=== PATIENT | female | born 1965 | race Caucasian/White ===

== ENCOUNTER 2016-10-18 19:47 | Observation (INO) | payer BC ==
[2016-10-18] MEDS ORDERED: ONDANSETRON DISINTEGRATING 4 MG TAB PO ONE (19:59)
[2016-10-18] MEDS ORDERED: NS 1,000 ML IV ONE (20:00)
[2016-10-18 20:28] LABS: % IMMATURE GRANULYOCYTES 0.4 % (0.0-1.1); ABSOLUTE IMMATURE GRANULOCYTES 0.06 10^3/uL (0.00-0.10); ADD DIFF? NO; ADD MORPH? NO; ADD SCAN? NO; ATYPICAL LYMPHOCYTE FLAG 0 (0-99); FRAGMENT RBC FLAG 0 (0-99); HEMATOCRIT 42.2 % (38.0-47.0); HEMOGLOBIN 14.3 g/dL (12.6-16.3); LEFT SHIFT FLG 0 (0-99); LIPEMIA HEMOLYSIS FLAG 90 (0-99); MEAN CELL HEMOGLOBIN 29.4 pg (27.9-34.1); MEAN CELL HEMOGLOBIN CONCENTR. 33.9 g/dL (32.4-36.7); MEAN CELL VOLUME 86.7 fL (81.5-99.8); MEAN PLATELET VOLUME 10.3 fL (8.7-11.7); PLATELET CLUMPS FLAG 10 (0-99); PLATELET COUNT 253 10^3/uL (150-400); RED BLOOD CELL COUNT 4.87 10^6/uL (4.18-5.33); RED CELL DISTRIBUTION WIDTH 12.7 % (11.5-15.2)
[2016-10-18] MEDS ORDERED: ONDANSETRON 4 MG/2 ML VIAL ONE (20:28)
[2016-10-18] MEDS ORDERED: ONDANSETRON 4 MG/2 ML VIAL IVP ONE (20:36)
--- NOTE | 2016-10-18 20:41 | CPEKG ---
Heart Rate: 69 RR Interval: 870 P-R Interval: 168 QRSD Interval: 84 QT Interval: 408 QTC Interval: 437 P [place]: 72 QRS [place]: 79 T Wave [place]: 58 EKG Severity - NORMAL ECG - EKG Impression: SINUS RHYTHM Electronically Signed By: Alex Cleveland 18-Oct-2016 21:57:14
[2016-10-18 20:47] LABS: ANION GAP 12 mEq/L (8-16); CALCIUM 9.8 mg/dL (8.5-10.4); CARBON DIOXIDE 24 mEq/l (22-31); CHLORIDE 103 mEq/L (97-110); GLOMERULAR FILTRATION RATE 58; GLUCOSE 115 mg/dL (70-100); POTASSIUM 3.8 mEq/L (3.5-5.2); SODIUM 139 mEq/L (134-144)
[2016-10-18 20:58] LABS: TROPONIN I < 0.012 ng/mL (0-0.034)
[2016-10-18] MEDS ORDERED: METOCLOPRAMIDE 10 MG/2 ML VIAL IVP ONE (21:20)
--- NOTE | 2016-10-18 21:41 | EDPHY ---
H & P Stated Complaint: Syncope, n/v - Personal History Current Tetanus/Diphtheria Vaccine: Yes Current Tetanus Diphtheria and Acellular Pertussis (TDAP): Yes - Medical/Surgical History Hx Asthma: No Hx Chronic Respiratory Disease: No Hx Diabetes: No Hx Cardiac Disease: No Hx Renal Disease: No Hx Cirrhosis: No Hx Alcoholism: No Hx HIV/AIDS: No Hx Splenectomy or Spleen Trauma: No Other PMH: PMH: hyperlipidemia - Social History Smoking Status: Never smoked HPI/ROS: Chief complaint: Syncope History of present illness: This is a 50-year-old female who arrived from [place] today who is brought to the emergency department by EMS for evaluation after a syncopal event. Patient was at dinner eating when she started to feel numbness and tingling in her fingers. She subsequently passed out. This was witnessed. She was out for approximately 30-45 seconds. No seizure activity reported. On my evaluation patient states she feels unwell describing generalized malaise. She has had associated nausea and vomiting. She denies other associated signs or symptoms including no fevers, no cold symptoms, no chest pain, no shortness of breath, no cough. She does state approximately a year and half ago she had a similar syncopal episode and reports that when she was seen in the hospital she had a positive troponin and was admitted. She did undergo extensive evaluation. Ultimately it sounds like it was not truly cardiac in nature although this is not clear. Review of systems: A 10 point review of systems was obtained and other than described above was negative (Leonel Sims) - Physical Exam Exam: General Appearance: Alert, nontoxic. Eyes: Pupils equal and round no pallor or injection. ENT, Mouth: Mucous membranes moist. Respiratory: There are no retractions, lungs are clear to auscultation. Cardiovascular: Regular rate and rhythm. Gastrointestinal: Abdomen is soft and non tender, no masses, bowel sounds normal. Neurological: Alert and oriented x4. Cranial nerves 2-12 grossly intact. Strength and sensation intact and symmetrical. Skin: Warm and dry, no rashes. Musculoskeletal: Neck is supple non tender. Extremities are symmetrical, full range of motion. Psychiatric: Patient is oriented X 3, there is no agitation. (Leonel Sims) Constitutional: Initial Vital Signs Temperature (C) 36.6 C 10/18/16 20:22 Heart Rate 67 10/18/16 20:22 Respiratory Rate 18 10/18/16 20:22 Blood Pressure 123/81 H 10/18/16 20:22 O2 Sat (%) 100 10/18/16 20:22 O2 Delivery Mode Room Air Allergies/Adverse Reactions: No Known Allergies Allergy (Unverified 10/18/16 20:23) Home Medications: Medication Instructions Recorded Atorvastatin Calcium [Lipitor 10 10 mg PO HS 10/18/16 mg (*)] Herbals/Supplements -Info Only 1 ea PO DAILY 10/18/16 Multivitamins [Multivitamin (*)] 1 each PO DAILY 10/18/16 Medical Decision Making - Diagnostics EKG Interpretation: 12-lead EKG interpreted by me; official reading is in trace master. My interpretation is sinus rhythm rate 69 normal intervals no ischemic changes. ( Alex Cleveland) ED Course/Re-evaluation: Patient seen in conjunction with my secondary supervising physician Dr. Alex Cleveland. Patient presents to the emergency department for a syncopal episode. Evaluation is unremarkable. Patient remains poor appearing. She will be admitted to Dr. Donohue for further evaluation and care. The plan has been discussed with the patient who voiced understanding and agreement with it. ( Leonel Sims) Differential Diagnosis: Included but not limited to vasovagal, hypovolemia, electrolyte disturbances, cardiac disturbances, seizure activity (Leonel Sims) Other Provider: PHYSICIAN DOCUMENTATION: The patient was evaluated and managed by the Physician Feeder Catcher and myself. I have reviewed the chart and agree with the findings and plan of care as documented. In addition, I examined the patient myself at 2145. History confirmed as syncope. The patient felt tingling in her hands at dinner like she was going to faint and was out for 30-45 seconds. She has continued nausea but no vertigo. Physical findings as follows: Ambulatory to the bathroom without ataxia. EKG reviewed and appears negative for evidence for malignant dysrhythmia. She is not short of breath and does not have chest pain I think stroke or pulmonary embolism are unlikely. I think the most likely reason for the patient's symptoms is a vasovagal event, but she feels "terrible" with continued nausea and just not feeling well. If not able to control her symptoms, will recommend admission for observation and continued hydration. I am the secondary supervising physician. (Alex Cleveland) - Data Points Laboratory Results: Laboratory Results 10/18/16:19 10/18/16 20:19 10/18/16 10/18/16 10/18/16 21:52 20:19 20:19 WBC RBC Hgb Hct MCV MCH MCHC RDW Plt Count MPV Neut % (Auto) Lymph % (Auto) [place] % (Auto) Eos % (Auto) Baso % (Auto) Nucleat RBC Rel Count Absolute Neuts (auto) Absolute Lymphs (auto) Absolute Monos (auto) Absolute Eos (auto) Absolute Basos (auto) Absolute Nucleated RBC Immature Gran % Immature Gran # Sodium 139 mEq/L mEq/L (134-144) Potassium 3.8 mEq/L mEq/L (3.5-5.2) Chloride 103 mEq/L mEq/L (97-110) Carbon Dioxide 24 mEq/l mEq/l (22-31) Anion Gap 12 mEq/L mEq/L (8-16) BUN 16 mg/dL mg/dL (7-23) Creatinine 1.0 mg/dL mg/dL (0.6-1.0) Estimated GFR 58 Glucose 115 mg/dL H mg/dL (70-100) Calcium 9.8 mg/dL mg/dL (8.5-10.4) Troponin I < 0.012 ng/mL ng/mL (0-0.034) Beta HCG, Qual NEGATIVE Urine Color YELLOW Urine Appearance HAZY Urine pH 7.0 (5.0-7.5) Ur Specific [place] 1.014 (1.002-1.030) Urine Protein NEGATIVE (NEGATIVE) Urine Ketones 1+ H (NEGATIVE) Urine Blood NEGATIVE (NEGATIVE) Urine Nitrate NEGATIVE (NEGATIVE) Urine Bilirubin NEGATIVE (NEGATIVE) Urine Urobilinogen NEGATIVE EU EU (0.2-1.0) Ur Leukocyte Esterase NEGATIVE (NEGATIVE) Urine Glucose NEGATIVE (NEGATIVE) 10/18/16 20:19 WBC 14.64 10^3/uL H 10^3/uL (3.80-9.50) RBC 4.87 10^6/uL 10^6/uL (4.18-5.33) Hgb 14.3 g/dL g/dL (12.6-16.3) Hct 42.2 % % (38.0-47.0) MCV 86.7 fL fL (81.5-99.8) MCH 29.4 pg pg (27.9-34.1) MCHC 33.9 g/dL g/dL (32.4-36.7) RDW 12.7 % % (11.5-15.2) Plt Count 253 10^3/uL 10^3/uL (150-400) MPV 10.3 fL fL (8.7-11.7) Neut % (Auto) 78.6 % H % (39.3-74.2) Lymph % (Auto) 14.8 % L % (15.0-45.0) [place] % (Auto) 5.5 % % (4.5-13.0) Eos % (Auto) 0.5 % L % (0.6-7.6) Baso % (Auto) 0.2 % L % (0.3-1.7) Nucleat RBC Rel Count 0.0 % % (0.0-0.2) Absolute Neuts (auto) 11.50 10^3/uL H 10^3/uL (1.70-6.50) Absolute Lymphs (auto) 2.17 10^3/uL 10^3/uL (1.00-3.00) Absolute Monos (auto) 0.81 10^3/uL H 10^3/uL (0.30-0.80) Absolute Eos (auto) 0.07 10^3/uL 10^3/uL (0.03-0.40) Absolute Basos (auto) 0.03 10^3/uL 10^3/uL (0.02-0.10) Absolute Nucleated RBC 0.00 10^3/uL 10^3/uL (0-0.01) Immature Gran % 0.4 % % (0.0-1.1) Immature Gran # 0.06 10^3/uL 10^3/uL (0.00-0.10) Sodium Potassium Chloride Carbon Dioxide Anion Gap BUN Creatinine Estimated GFR Glucose Calcium Troponin I Beta HCG, Qual Urine Color Urine Appearance Urine pH Ur Specific [place] Urine Protein Urine Ketones Urine Blood Urine Nitrate Urine Bilirubin Urine Urobilinogen Ur Leukocyte Esterase Urine Glucose Medications Given: Discontinued Medications Sodium Chloride (Ns) 1,000 mls @ 0 mls/hr IV ONCE ONE PRN Reason: Wide Open Stop: 10/18/16 20:01 Last Admin: 10/18/16 20:36 Dose: 1,000 mls Metoclopramide HCl (Reglan Injection) 10 mg IVP EDNOW ONE Stop: 10/18/16 21:21 Last Admin: 10/18/16 21:28 Dose: 10 mg Ondansetron HCl (Zofran Odt) 4 mg PO EDNOW ONE Stop: 10/18/16 20:00 Last Admin: 10/18/16 20:24 Dose: 4 mg Ondansetron HCl (Zofran) 4 mg IVP EDNOW ONE Stop: 10/18/16 20:37 Last Admin: 10/18/16 20:37 Dose: 4 mg Departure - Departure Disposition: [facility] Inpatient Acute Clinical Impression: Syncope Qualifiers: Syncope type: unspecified Qualified Code(s): R55 - Syncope and collapse Condition: Good Referrals: ISAURO BENÍTEZ MD [Other] - As per Instructions
[2016-10-18 22:07] LABS: COLOR YELLOW; LEUKOCYTE ESTERASE,URINE NEGATIVE (NEGATIVE); NITRITE,URINE NEGATIVE (NEGATIVE)
[2016-10-19] MEDS ORDERED: IBUPROFEN 600 MG TAB PO PRN (00:47)
[2016-10-19] MEDS ORDERED: ONDANSETRON DISINTEGRATING 4 MG TAB PO PRN (00:47)
[2016-10-19] MEDS ORDERED: ACETAMINOPHEN 325 MG TAB PO PRN (00:47)
--- NOTE | 2016-10-19 03:12 | PDEACUHP ---
History and Physical - Chief Complaint syncope - History of Present Illness 50 yo F with no significant PMH presenting with syncopal event occurring this evening while at dinner. Patient is from [place] and travelled here today for her step son's graduation. She was at dinner when she began to feel tingly and as if she were going to faint, and shortly afterwards fainted at the table. She was unconscious for about 30-45 seconds. When she awoke she felt nauseated but otherwise normal, she walked outside to see if she would feel better, but then had significant vomiting for at least 3 episodes. She notes that earlier in the day she had some gas like abdominal cramps but no nausea. She has had a similar episode 2 years ago in [place], at that time she had the feeling as if she would faint very much like this time, but did not actually have a LOC. It also occurred while eating. She had an extensive w/u including echo, stress test, holter monitor, carotid US and everything was normal. She notes once or twice she has had a similar sensation while having a BM, but never actually fainted before. She notes she is quite active and has never had sxs like this with exertion. She has very low stress in her life right now and no other health concerns. History Information - Allergies/Home Medication List Allergies/Adverse Reactions: No Known Allergies Allergy (Unverified 10/18/16 20:23) Home Medications: Atorvastatin Calcium [Lipitor 10 mg (*)] 10 mg PO HS 10/18/16 [Last Taken ] Herbals/Supplements -Info Only 1 ea PO DAILY 10/18/16 [Last Taken Unknown] Multivitamins [Multivitamin (*)] 1 each PO DAILY 10/18/16 [Last Taken Unknown] I have personally reviewed and updated: family history, medical history, social history, surgical history - Past Medical History hyperlipidemia Additional medical history: near syncope - Surgical History Additional surgical history: eye surgery. breast augmentation x 2. 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, Review of Systems ROS: 10pt was reviewed & negative except for what was stated in HPI & below Physical Exam Temp Pulse Resp BP Pulse Ox 37.1 C 77 16 118/79 96 10/18/16 23:35 10/18/16 23:35 10/18/16 23:35 10/18/16 23:35 10/18/16 23:35 Constitutional: no apparent distress, appears nourished Eyes: PERRL Ears, Nose, Mouth, Throat: moist mucous membranes, hearing normal Cardiovascular: regular rate and rhythym, no murmur, rub, or gallop, No edema Respiratory: no respiratory distress, no rales or rhonchi Gastrointestinal: normoactive bowel sounds, soft, non-tender abdomen Genitourinary: no bladder tenderness Skin: warm, normal color Musculoskeletal: full muscle strength, no muscle tenderness Neurologic: AAOx3 Psychiatric: interacting appropriately, not anxious, not encephalopathic Lab Data & Imaging Review 10/18/16 20:19 10/18/16 20:19 WBC 14.64 10^3/uL (3.80-9.50) H 10/18/16 20:19 RBC 4.87 10^6/uL (4.18-5.33) 10/18/16 20:19 Hgb 14.3 g/dL (12.6-16.3) 10/18/16 20:19 Hct 42.2 % (38.0-47.0) 10/18/16 20:19 MCV 86.7 fL (81.5-99.8) 10/18/16 20:19 MCH 29.4 pg (27.9-34.1) 10/18/16 20:19 MCHC 33.9 g/dL (32.4-36.7) 10/18/16 20:19 RDW 12.7 % (11.5-15.2) 10/18/16 20:19 Plt Count 253 10^3/uL (150-400) 10/18/16 20:19 MPV 10.3 fL (8.7-11.7) 10/18/16 20:19 Neut % (Auto) 78.6 % (39.3-74.2) H 10/18/16 20:19 Lymph % (Auto) 14.8 % (15.0-45.0) L 10/18/16 20:19 [place] % (Auto) 5.5 % (4.5-13.0) 10/18/16 20:19 Eos % (Auto) 0.5 % (0.6-7.6) L 10/18/16 20:19 Baso % (Auto) 0.2 % (0.3-1.7) L 10/18/16 20:19 Nucleat RBC Rel Count 0.0 % (0.0-0.2) 10/18/16 20:19 Absolute Neuts (auto) 11.50 10^3/uL (1.70-6.50) H 10/18/16 20:19 Absolute Lymphs (auto) 2.17 10^3/uL (1.00-3.00) 10/18/16 20:19 Absolute Monos (auto) 0.81 10^3/uL (0.30-0.80) H 10/18/16 20:19 Absolute Eos (auto) 0.07 10^3/uL (0.03-0.40) 10/18/16 20:19 Absolute Basos (auto) 0.03 10^3/uL (0.02-0.10) 10/18/16 20:19 Absolute Nucleated RBC 0.00 10^3/uL (0-0.01) 10/18/16 20:19 Immature Gran % 0.4 % (0.0-1.1) 10/18/16 20:19 Immature Gran # 0.06 10^3/uL (0.00-0.10) 10/18/16 20:19 Sodium 139 mEq/L (134-144) 10/18/16 20:19 Potassium 3.8 mEq/L (3.5-5.2) 10/18/16 20:19 Chloride 103 mEq/L (97-110) 10/18/16 20:19 Carbon Dioxide 24 mEq/l (22-31) 10/18/16 20:19 Anion Gap 12 mEq/L (8-16) 10/18/16 20:19 BUN 16 mg/dL (7-23) 10/18/16 20:19 Creatinine 1.0 mg/dL (0.6-1.0) 10/18/16 20:19 Estimated GFR 58 10/18/16 20:19 Glucose 115 mg/dL (70-100) H 10/18/16 20:19 Calcium 9.8 mg/dL (8.5-10.4) 10/18/16 20:19 Troponin I < 0.012 ng/mL (0-0.034) 10/19/16 02:15 Beta HCG, Qual NEGATIVE 10/18/16 20:19 Urine Color YELLOW 10/18/16 21:52 Urine Appearance HAZY 10/18/16 21:52 Urine pH 7.0 (5.0-7.5) 10/18/16 21:52 Ur Specific [place] 1.014 (1.002-1.030) 10/18/16 21:52 Urine Protein NEGATIVE (NEGATIVE) 10/18/16 21:52 Urine Ketones 1+ (NEGATIVE) H 10/18/16 21:52 Urine Blood NEGATIVE (NEGATIVE) 10/18/16 21:52 Urine Nitrate NEGATIVE (NEGATIVE) 10/18/16 21:52 Urine Bilirubin NEGATIVE (NEGATIVE) 10/18/16 21:52 Urine Urobilinogen NEGATIVE EU (0.2-1.0) 10/18/16 21:52 Ur Leukocyte Esterase NEGATIVE (NEGATIVE) 10/18/16 21:52 Urine Glucose NEGATIVE (NEGATIVE) 10/18/16 21:52 Visualized and Interpreted EKG results: Yes EKG Interpretation: Positive for: normal sinsus rhythm Assessment & Plan Assessment: Syncope (Acute) 50 yo F presenting with syncopal event, most likely vasovagal # syncope: sounds most c/w vasovagal syncope with typical prodrome, associated n /v and prior similar symptoms while eating or defecating. W/u thus far including labs, ecg unremarkable. Extensive w/u 2 years ago completely unremarkable per her report. Plan for now, continue to monitor overnight on telemetry. Will trend troponin. So long as this all remains negative, would dc home in am and allow patient to f/u with her PCP when she returns home to [place] for consideration of Linq/event monitor as well as tilt table testing given relative long periods between events in order to rule out arrhythmia. Likely contribution of hypovolemia as patient notes she does not drink water regularly- -reviewed strategies for staying hydrated including pushing fluids/regular salty snacks. # leukocytosis: likely stress response without any s/s of infection but will repeat in am # n/v: in setting of syncopal event and some preceding GI sxs prior to syncope. Has now resolved, w/u for syncope as above as suspect n/v either helped trigger vagal event, or possibly related to syncopal episode itself # observation status Patient new to my care. Reviewed care plan with ER doctor including plans for tele monitoring overnight.
[2016-10-19 07:51] LABS: % IMMATURE GRANULYOCYTES 0.3 % (0.0-1.1); ABSOLUTE IMMATURE GRANULOCYTES 0.02 10^3/uL (0.00-0.10); ADD DIFF? NO; ADD MORPH? NO; ADD SCAN? NO; ATYPICAL LYMPHOCYTE FLAG 0 (0-99); FRAGMENT RBC FLAG 0 (0-99); HEMATOCRIT 41.2 % (38.0-47.0); HEMOGLOBIN 13.6 g/dL (12.6-16.3); LEFT SHIFT FLG 0 (0-99); LIPEMIA HEMOLYSIS FLAG 80 (0-99); MEAN CELL VOLUME 87.8 fL (81.5-99.8); MEAN PLATELET VOLUME 10.5 fL (8.7-11.7); PLATELET CLUMPS FLAG 10 (0-99); PLATELET COUNT 227 10^3/uL (150-400); RED BLOOD CELL COUNT 4.69 10^6/uL (4.18-5.33); RED CELL DISTRIBUTION WIDTH 12.8 % (11.5-15.2)
[2016-10-19] MEDS ORDERED: MULTIVITAMINS 1 EACH TAB PO SCH (09:00)
[2016-10-19 09:27] VITALS: BP 138/73; PULSE 86; RESP 20; TEMP 97.4; O2SAT 96
--- NOTE | 2016-10-19 09:39 | GDS ---
[f rep st] DISCHARGE SUMMARY ALL DIAGNOSES: 1. Vasovagal syncope. 2. Leukocytosis. HOSPITAL COURSE: A 50-year-old female, who presented with syncope. She had been feeling nauseous w ith some GI distress prior to this. There was no seizure activity noted. Troponins were undetectab le. EKG was normal. She was monitored on telemetry overnight with no arrhythmias. Initially had a leukocytosis which resolved with no other intervention. History notable for having had presyncope with bowel movements in the past. She also had a similar episode of syncope about 2 years ago when she lived in [place]. At that time, it sounds as though she had a complete workup including stre ss test, echocardiogram, carotid ultrasound, CT angio of the head and neck, as we will Holter monito ring. All of this she reports as negative. She has a followup with her primary care physician in 5 days time. She is discharged in stable condition. /[id number]/MODL
[2016-10-19] MEDS ORDERED: ATORVASTATIN CALCIUM 10 MG TAB PO SCH (21:00)
== END 2016-10-19 09:38 | disposition home or self-care (01) ==
LOC: F1N 23:05
PROVIDERS: ADMIT Internal Medicine; ATTEND Student in an Organized Health Care Education/Training Program
DX: R55 Syncope and collapse (principal); E78.5 Hyperlipidemia, unspecified; R11.2 Nausea with vomiting, unspecified
CPT/HCPCS: 93005; G0378; 96374; J2405; J2765